=== PATIENT | female | born 1950 | race Caucasian/White ===

== ENCOUNTER → 2025-01-27 | Outpatient (REF) | payer MEDICARE, OTHER ==
[2025-01-27 17:45] LABS: BASO # 0.0 10^3/uL (0.0-0.2); BASO % 0.7 % (0.0-1.0); EOS # 0.4 10^3/uL (0.0-0.5); EOS % 8.0 % (0.0-3.0); LYMPH # 1.2 10^3/uL (1.5-5.0); LYMPH % 28.2 % (24.0-44.0); MONO # 0.4 10^3/uL (0.0-0.8); MONO % 8.4 % (2.0-8.0); NEUTROPHILS # 2.4 10^3/uL (1.5-8.5); NEUTROPHILS % 54.5 % (36.0-66.0); PLATELET COUNT, AUTOMATED 244 10^3/uL (150-450)
[2025-01-27 17:55] LABS: CREATININE, URINE 48.6 MG/DL; MALB URINE SIEMENS 19.0 MG/L; MAU/CREAT RATIO 39.0 MCG/MG (0.0-30.0)
[2025-01-27 17:57] LABS: ESTIMATED AVERAGE GLUCOSE 108.0 MG/DL (60-110); FREE T4 1.32 NG/DL (0.89-1.76)
[2025-01-27 17:58] LABS: ALT/SGPT 15.0 U/L (7.0-40); AST/SGOT 17.0 U/L (<34); CALCIUM LEVEL 9.5 MG/DL (8.3-10.6); CARBON DIOXIDE LEVEL 31.0 MMOL/L (20-31); CHLORIDE LEVEL 98.0 MMOL/L (98-107); CHOLESTEROL LEVEL 114.0 MG/DL (<200); CHOLESTEROL RISK RATIO 2.45 (<5); CREATININE FOR GFR 0.69 MG/DL (0.55-1.30); GLOMERULAR FILTRATION RATE 89.9 (>39); LDL CHOLESTEROL 47.9 MG/DL (<100); NON-HDL-C 67.5 MG/DL; POTASSIUM SERUM 3.7 MMOL/L (3.5-5.1); SODIUM LEVEL 136.0 MMOL/L (136-145); TRIGLYCERIDES LEVEL 98.0 MG/DL (<150)
== END ==
LOC: M SFHCCAPE 07:29
PROVIDERS: ATTEND Physician Assistant Medical
DX: I10 Essential (primary) hypertension (principal); I48.91 Unspecified atrial fibrillation; E11.9 Type 2 diabetes mellitus without complications; E78.5 Hyperlipidemia, unspecified

== ENCOUNTER → 2025-02-23 | Outpatient (CLI) | payer MEDICARE, OTHER | LOC: M RAD 15:05 | PROVIDERS: ATTEND Physician Assistant Medical | DX: Z12.2 Encounter for screening for malignant neoplasm of respiratory organs (principal); F17.211 Nicotine dependence, cigarettes, in remission; J43.9 Emphysema, unspecified ==

== ENCOUNTER → 2025-03-02 | Outpatient (REF) | payer MEDICARE, OTHER | LOC: M PLALAB 14:49 | PROVIDERS: ATTEND Student in an Organized Health Care Education/Training Program | DX: N93.9 Abnormal uterine and vaginal bleeding, unspecified (principal) ==

== ENCOUNTER 2025-04-04 14:25 | Inpatient (IN) | payer MEDICARE, OTHER ==
[~2025-04-04] VITALS: Ht 160 cm; Wt 67.0 kg
[2025-04-04] MEDS ORDERED: NS (Normal Saline) 0.9% 1,000 ML IV SCH (15:15)
[2025-04-04 15:30] LABS: BASO # 0.0 10^3/uL (0.0-0.2); BASO % 0.4 % (0.0-1.0); EOS # 0.1 10^3/uL (0.0-0.5); EOS % 1.8 % (0.0-3.0); LYMPH # 1.0 10^3/uL (1.5-5.0); LYMPH % 14.1 % (24.0-44.0); MONO # 0.6 10^3/uL (0.0-0.8); MONO % 9.2 % (2.0-8.0); NEUTROPHILS # 5.0 10^3/uL (1.5-8.5); NEUTROPHILS % 74.4 % (36.0-66.0); PLATELET COUNT, AUTOMATED 223 10^3/uL (150-450)
[2025-04-04 16:05] LABS: CALCIUM LEVEL 9.4 MG/DL (8.3-10.6); CARBON DIOXIDE LEVEL 30 MMOL/L (20-31); CHLORIDE LEVEL 98 MMOL/L (98-107); CREATININE FOR GFR 0.59 MG/DL (0.55-1.30); GLOMERULAR FILTRATION RATE > 90.0 (>39); MAGNESIUM LEVEL 1.2 MG/DL (1.8-2.4); POTASSIUM SERUM 3.9 MMOL/L (3.5-5.1); SODIUM LEVEL 138 MMOL/L (136-145)
[2025-04-04] MEDS: dilTIAZem 25 MG/5 ML VIAL IV ONE (16:24)
[2025-04-04] MEDS: MAG SULF 1GM/100ML (MAG RUN) 1 GM in IV 1 EA IV ONE ×2 (16:56→18:42)
[2025-04-04] MEDS ORDERED: DEXTROSE 50% 50 ML SYRINGE IV PRN (17:10)
[2025-04-04] MEDS ORDERED: GLUCOSE 4 GM CHEW PO PRN (17:10)
[2025-04-04] MEDS ORDERED: GLUCAGON INJ 1 MG VIAL SC PRN (17:10)
[2025-04-04] MEDS ORDERED: LIFI1DRO4 OU (17:25)
[2025-04-04] MEDS ORDERED: METF500T13 PO (17:25)
[2025-04-04] MEDS ORDERED: DILT240C83 PO (17:25)
[2025-04-04] MEDS ORDERED: RAMI10CA64 PO (17:25)
[2025-04-04] MEDS ORDERED: RAMI5CAP60 PO (17:25)
[2025-04-04] MEDS ORDERED: ANAS1TAB2 PO (17:25)
[2025-04-04] MEDS ORDERED: HYDR-3490 PO (17:25)
[2025-04-04] MEDS ORDERED: XARE20TA PO (17:25)
[2025-04-04] MEDS ORDERED: METO1TAB7 PO (17:25)
[2025-04-04] MEDS ORDERED: CYAN-1 PO (17:25)
[2025-04-04] MEDS ORDERED: HOME MED LIST COMPLETE! XX SCH (17:30)
[2025-04-04 17:41] LABS: CK-MB VALUE MASS 1.6 NG/ML (<3.6)
[2025-04-04 17:52] LABS: CPK CREATINE PHOSPHOKINASE 40 U/L (34-145); MB/CK RELATIVE INDEX 4.00 (< OR =4)
[2025-04-04] MEDS ORDERED: ISOVUE-370 76% 100 ML VIAL As Ordered ONE (17:58)
[2025-04-04] MEDS: DIGOXIN INJ 0.5 MG/2 ML AMP IV STA (18:41)
[2025-04-04] MEDS: INSULIN LISPRO (NovoLOG) PER UNIT SC SCH ×2 (18:42→21:18)
[2025-04-04] MEDS: RIVAROXABAN 20MG TAB PO SCH (18:46)
[2025-04-04] MEDS: METOPROLOL TART 25 MG TABLET PO SCH (18:47)
[2025-04-04 20:04] LABS: ESTIMATED AVERAGE GLUCOSE 103.0 MG/DL (60-110)
[2025-04-04 21:38] VITALS: BP 145/72; TEMP 97.6; O2SAT 95
[2025-04-04] MEDS: DIGOXIN INJ 0.5 MG/2 ML AMP IV ONE (23:10)
[2025-04-05] VITALS (10 sets, daily range): BP systolic 109–184; BP diastolic 64–100; TEMP 97.2–98.1; O2SAT 90–98
[2025-04-05] MEDS: METOPROLOL TART 25 MG TABLET PO ONE (01:17)
[2025-04-05] MEDS: MAG SULF 1GM/100ML (MAG RUN) 1 GM in IV 1 EA IV SCH (02:39)
[2025-04-05] MEDS: METOPROLOL TART 50 MG TAB PO SCH (06:02)
[2025-04-05 06:53] LABS: PLATELET COUNT, AUTOMATED 260 10^3/uL (150-450)
[2025-04-05 07:07] LABS: CALCIUM LEVEL 9.6 MG/DL (8.3-10.6); CARBON DIOXIDE LEVEL 33 MMOL/L (20-31); CHLORIDE LEVEL 96 MMOL/L (98-107); CHOLESTEROL LEVEL 97 MG/DL (<200); CHOLESTEROL RISK RATIO 2.10 (<5); CREATININE FOR GFR 0.53 MG/DL (0.55-1.30); DIGOXIN LEVEL 0.6 NG/ML (0.8-2.0); GLOMERULAR FILTRATION RATE > 90.0 (>39); LDL CHOLESTEROL 37.6 MG/DL (<100); MAGNESIUM LEVEL 2.0 MG/DL (1.8-2.4); NON-HDL-C 51.0 MG/DL; POTASSIUM SERUM 4.0 MMOL/L (3.5-5.1); SODIUM LEVEL 138 MMOL/L (136-145); TRIGLYCERIDES LEVEL 67 MG/DL (<150)
[2025-04-05] MEDS: dilTIAZem 120 MG **CD** CAPSULE PO SCH (08:58)
[2025-04-05] MEDS ORDERED: METOPROLOL SUCC. 50 MG *XL* TAB PO SCH (09:45)
[2025-04-05] MEDS: METOPROLOL SUCC. 50 MG *XL* TAB PO ONE (11:05)
[2025-04-06 03:36] VITALS: BP 135/66; TEMP 97.6; O2SAT 90
[2025-04-06] MEDS: METOPROLOL SUCC. 100 MG *XL* TAB PO SCH (09:14)
[2025-04-06] MEDS: hydroCHLOROthiazide 25 MG TAB PO SCH (09:14)
[2025-04-06] MEDS ORDERED: HYDR-3490 PO (10:44)
[2025-04-06] MEDS ORDERED: DILT240C83 PO (10:44)
[2025-04-06] MEDS ORDERED: METO1TAB33 PO (10:44)
== END 2025-04-06 11:35 | disposition home or self-care (01) | DRG 310 ==
LOC: M ED 14:25 → M ED INP 16:47 → M PCU 21:37
PROVIDERS: ADMIT General Practice; ATTEND Student in an Organized Health Care Education/Training Program
DX: I48.0 Paroxysmal atrial fibrillation (principal); E83.42 Hypomagnesemia; I10 Essential (primary) hypertension; E11.51 Type 2 diabetes mellitus with diabetic peripheral angiopathy without gangrene; M48.061 Spinal stenosis, lumbar region without neurogenic claudication; I25.10 Atherosclerotic heart disease of native coronary artery without angina pectoris; M47.9 Spondylosis, unspecified; D50.9 Iron deficiency anemia, unspecified; E78.5 Hyperlipidemia, unspecified; Z85.3 Personal history of malignant neoplasm of breast; H35.30 Unspecified macular degeneration; M19.90 Unspecified osteoarthritis, unspecified site; Z87.891 Personal history of nicotine dependence; Z79.899 Other long term (current) drug therapy

== ENCOUNTER → 2025-04-13 | Outpatient (REF) | payer MEDICARE, OTHER ==
[~2025-04-13] MED LIST: ANAS1TAB2 PO; CYAN-1 PO; DILT240C83 PO; HYDR-3490 PO; LIFI1DRO4 OU; METF500T13 PO; METO1TAB33 PO; METO1TAB7 PO; RAMI10CA64 PO; RAMI5CAP60 PO; XARE20TA PO
[2025-04-13 18:43] LABS: CALCIUM LEVEL 9.5 MG/DL (8.3-10.6); CARBON DIOXIDE LEVEL 32.0 MMOL/L (20-31); CHLORIDE LEVEL 96.0 MMOL/L (98-107); CREATININE FOR GFR 1.07 MG/DL (0.55-1.30); GLOMERULAR FILTRATION RATE 53.5 (>39); MAGNESIUM LEVEL 1.1 MG/DL (1.8-2.4); POTASSIUM SERUM 3.9 MMOL/L (3.5-5.1); SODIUM LEVEL 138.0 MMOL/L (136-145)
== END ==
LOC: M SFHCCAPE 14:03
PROVIDERS: ATTEND Physician Assistant Medical
DX: E83.42 Hypomagnesemia (principal); I10 Essential (primary) hypertension

== ENCOUNTER → 2025-04-19 | Outpatient (REF) | payer MEDICARE, OTHER ==
[2025-04-19 18:54] LABS: CALCIUM LEVEL 9.7 MG/DL (8.3-10.6); CARBON DIOXIDE LEVEL 34.0 MMOL/L (20-31); CHLORIDE LEVEL 96.0 MMOL/L (98-107); CREATININE FOR GFR 0.8 MG/DL (0.55-1.30); GLOMERULAR FILTRATION RATE 75.8 (>39); MAGNESIUM LEVEL 1.5 MG/DL (1.8-2.4); POTASSIUM SERUM 3.7 MMOL/L (3.5-5.1); SODIUM LEVEL 138.0 MMOL/L (136-145)
== END ==
LOC: M SFHCCAPE 07:44
PROVIDERS: ATTEND Physician Assistant Medical
DX: E83.42 Hypomagnesemia (principal)